=== PATIENT | male | born 1950 | race Caucasian/White ===

== ENCOUNTER 2017-11-21 15:10 | Emergency (ER) | payer OTHER, MEDICARE, SELFPAY ==
[2017-11-21] VITALS (21 sets, daily range): BP systolic 129–153; BP diastolic 73–78; PULSE 60–75; RESP 12–35; TEMP 36.8–37; O2SAT 93–98
--- NOTE | 2017-11-21 15:49 | ED.GENADUL ---
Disposition Clinical Impression: TIA (transient ischemic attack) Disposition: HOME Instructions: Transient Ischemic Attack (ED) Additional Instructions: Please follow-up with your primary care physician and neurology. Please take your medications as prescribed. Return to the emergency department immediately for any worsening or new concerning symptoms. Prescriptions: Magnesium Oxide [Mag-Ox 400] 400 mg PO BID #20 tab Referrals: Alejandra Rodriguez MD, [place] [Primary Care Provider] - Medical Decision Making - Medical Decision Making 15:45 -- Patient seen immediately on arrival. Medical screening exam performed. 67-year-old male with history of SVT, here after recent discharge from [facility] where he was being treated for TIA, with right-sided paresthesia and weakness involving his face and arm that occurred twice today just prior to arrival. 15:55 -- I spoke with Dr. Mcdonald, who knows the patient well, having just discharged him. I discussed the patient's presentation including history and exam. She recommends no additional testing at this time and requests that he be discharged with outpatient followup. I did ask Dr. Mcdonald to speak with the patient and his to discuss outpatient follow-up. 16:30 -- I spoke with Dr. Mcdonald again regarding a low magnesium that was not corrected at [facility] [place]. Apparently magnesium level was 0.9. Plan to recheck here and correct as needed. 17:24 -- Labs reviewed and magnesium WNL. Will prescribe short course of mag ox. History of Present Illness - General Chief complaint: CVA/TIA Stated complaint: STROKE? Time Seen by Provider: 11/21/17 15:17 Source: patient, family (), RN notes reviewed Mode of arrival: ambulatory Limitations: no limitations - History of Present Illness Initial comments: 67yo m hypothyroidism, SVT, presents with chief complaint of right sided weakness and numbness. Symptoms started just prior to arrival. He had a brief episode at 220 and then another episode at 250. The episode at 250 lasted for minutes. Symptoms were severe. He specifically notes that he had numbness and facial droop on the right side of his face as well as numbness and weakness in his right arm. Of note, patient had similar symptoms 2 days ago and was admitted to neurology service at [facility]. He had a recurrent episode yesterday around noon and then did not have any episodes last night or this morning. He was discharged from [facility] today. He did have CT imaging and CTA that revealed narrowing of the blood vessel. He cannot have MRI as he has metallic foreign body in his eye. Patient notes that symptoms today were worse than prior. No associated chest pain or dizziness. - Related Data Famotidine/Ca Carb/Mag Hydrox [Pepcid Complete Tablet Chew] 1 each PO BID PRN #180 tab.chew 10/05/13 Naproxen Sodium [Aleve] 220 mg PO DAILY PRN 11/13/16 Metoprolol [Lopressor] 25 mg PO PRN #10 tab 01/10/17 Aspirin 1 tab PO DAILY 11/21/17 Atorvastatin [Lipitor] 20 mg PO HS 11/21/17 Clopidogrel [Plavix] 75 mg PO DAILY 11/21/17 Levothyroxine Sodium 100 mcg PO DAILY 11/21/17 Magnesium Oxide [Mag-Ox 400] 400 mg PO BID #20 tab 11/21/17 Allergies Allergy/AdvReac Type Severity Reaction Status Date / Time codeine AdvReac Unverified 11/18/17 10:23 MRI AdvReac Severe Uncoded 11/21/17 16:14 Review of Systems Constitutional: denies: chills, fever Eyes: denies: vision change Respiratory: denies: cough, shortness of breath Neurological: weakness, numbness. denies: headache, confusion Comment: All other systems reviewed and negative Past Medical History - Past Medical History Medical history: GERD, SVT hypothyroidism - Social History Alcohol use: none Drug use: none General Exam - General Limitations: no limitations General appearance: alert, in no apparent distress - Head Head exam: Present: atraumatic, normocephalic - Eye Eye exam: Present: PERRL, EOMI. Absent: scleral icterus, conjunctival injection - ENT ENT exam: Present: mucous membranes moist - Respiratory Respiratory exam: Present: normal lung sounds bilaterally - Cardiovascular Cardiovascular Exam: Present: regular rate, normal rhythm, normal heart sounds - GI/Abdominal GI/Abdominal exam: Present: soft. Absent: distended, tenderness - Extremities Exam Extremities exam: Absent: pedal edema - Neurological Exam Neurological exam: Present: alert, oriented X3, CN II-XII intact. Absent: altered, motor sensory deficit - Psychiatric Psychiatric exam: Present: anxious - Skin Skin exam: Present: warm, dry, intact Course Vital Signs - 24 hr 11/21/17 11/21/17 15:20 15:24 Temperature 37.0 C Pulse 75 Respiratory 21 17 Rate Blood Pressure 153/74 Pulse Oximetry 98
--- NOTE | 2017-11-21 15:52 | ED.GENADUL_ITS ---
Disposition Clinical Impression: TIA (transient ischemic attack) Disposition: HOME Instructions: Transient Ischemic Attack (ED) Additional Instructions: Please follow-up with your primary care physician and neurology. Please take your medications as prescribed. Return to the emergency department immediately for any worsening or new concerning symptoms. Prescriptions: Magnesium Oxide [Mag-Ox 400] 400 mg PO BID #20 tab Referrals: Alejandra Rodriguez MD, [place] [Primary Care Provider] - Medical Decision Making - Medical Decision Making 15:45 -- Patient seen immediately on arrival. Medical screening exam performed. 67-year-old male with history of SVT, here after recent discharge from [facility] [place] where he was being treated for TIA, with right-sided paresthesia and weakness involving his face and arm that occurred twice today just prior to arrival. 15:55 -- I spoke with Dr. Mcdonald, who knows the patient well, having just discharged him. I discussed the patient's presentation including history and exam. She recommends no additional testing at this time and requests that he be discharged with outpatient followup. I did ask Dr. Mcdonald to speak with the patient and his to discuss outpatient follow-up. 16:30 -- I spoke with Dr. Mcdonald again regarding a low magnesium that was not corrected at [facility] [place]. Apparently magnesium level was 0.9. Plan to recheck here and correct as needed. 17:24 -- Labs reviewed and magnesium WNL. Will prescribe short course of mag ox. History of Present Illness - General Chief complaint: CVA/TIA Stated complaint: STROKE? Time Seen by Provider: 11/21/17 15:17 Source: patient, family (), RN notes reviewed Mode of arrival: ambulatory Limitations: no limitations - History of Present Illness Initial comments: 67yo m hypothyroidism, SVT, presents with chief complaint of right sided weakness and numbness. Symptoms started just prior to arrival. He had a brief episode at 220 and then another episode at 250. The episode at 250 lasted for minutes. Symptoms were severe. He specifically notes that he had numbness and facial droop on the right side of his face as well as numbness and weakness in his right arm. Of note, patient had similar symptoms 2 days ago and was admitted to neurology service at [facility] [place]. He had a recurrent episode yesterday around noon and then did not have any episodes last night or this morning. He was discharged from [facility] today. He did have CT imaging and CTA that revealed narrowing of the blood vessel. He cannot have MRI as he has metallic foreign body in his eye. Patient notes that symptoms today were worse than prior. No associated chest pain or dizziness. - Related Data Famotidine/Ca Carb/Mag Hydrox [Pepcid Complete Tablet Chew] 1 each PO BID PRN # 180 tab.chew 10/05/13 Naproxen Sodium [Aleve] 220 mg PO DAILY PRN 11/13/16 Metoprolol [Lopressor] 25 mg PO PRN #10 tab 01/10/17 Aspirin 1 tab PO DAILY 11/21/17 Atorvastatin [Lipitor] 20 mg PO HS 11/21/17 Clopidogrel [Plavix] 75 mg PO DAILY 11/21/17 Levothyroxine Sodium 100 mcg PO DAILY 11/21/17 Magnesium Oxide [Mag-Ox 400] 400 mg PO BID #20 tab 11/21/17 Allergies Allergy/AdvReac Type Severity Reaction Status Date / Time codeine AdvReac Unverified 11/18/17 10:23 MRI AdvReac Severe Uncoded 11/21/17 16:14 Review of Systems Constitutional: denies: chills, fever Eyes: denies: vision change Respiratory: denies: cough, shortness of breath Neurological: weakness, numbness. denies: headache, confusion Comment: All other systems reviewed and negative Past Medical History - Past Medical History Medical history: GERD, SVT hypothyroidism - Social History Alcohol use: none Drug use: none General Exam - General Limitations: no limitations General appearance: alert, in no apparent distress - Head Head exam: Present: atraumatic, normocephalic - Eye Eye exam: Present: PERRL, EOMI. Absent: scleral icterus, conjunctival injection - ENT ENT exam: Present: mucous membranes moist - Respiratory Respiratory exam: Present: normal lung sounds bilaterally - Cardiovascular Cardiovascular Exam: Present: regular rate, normal rhythm, normal heart sounds - GI/Abdominal GI/Abdominal exam: Present: soft. Absent: distended, tenderness - Extremities Exam Extremities exam: Absent: pedal edema - Neurological Exam Neurological exam: Present: alert, oriented X3, CN II-XII intact. Absent: altered, motor sensory deficit - Psychiatric Psychiatric exam: Present: anxious - Skin Skin exam: Present: warm, dry, intact Course Vital Signs - 24 hr 11/21/17 11/21/17 15:20 15:24 Temperature 37.0 C Pulse 75 Respiratory 21 17 Rate Blood Pressure 153/74 Pulse Oximetry 98
[2017-11-21 16:39] LABS: Abs Immature Grans 0.03 k/cumm (0.0-0.09); Absolute Basophil Count 0.05 k/cumm (0.0-0.2); Absolute Eosinophil Count 0.17 k/cumm (0.0-0.7); Absolute Lymphocyte Count 2.28 k/cumm (1.2-3.4); Absolute Monocyte Count 0.77 k/cumm (0.11-0.7); Absolute Neutrophil Count 5.51 k/cumm (1.2-6.7); Basophils % 0.6; Eosinophils % 1.9; HCT 41.9 % (40.0-50.0); HGB 13.9 g/dL (13.5-17.5); Immature Grans % 0.3; Lymphocytes % 25.9; Mean Corp. HGB Concentration 33.2 g/dL (32.0-36.0); Mean Corpuscular Hemoglobin 30.8 pg (27.0-33.0); Mean Corpuscular Volume 92.9 fL (80-95); Mean Platelet Volume 11.5 fL (8.0-11.0); Monocytes % 8.7; Neutrophils % 62.6; Platelet Count 214 x1000/uL (130-400); RBC 4.51 m/cumm (4.50-6.00); RBC Distribution Width 14.2 % (11.8-14.1); White Blood Cell Count 8.81 k/cumm (4.4-10.8)
[2017-11-21 16:54] LABS: ALT 35 U/L (12-78); AST 19 U/L (15-37); Albumin 3.8 g/dL (3.4-5.0); Alkaline Phosphatase 70 U/L (46-116); Anion Gap 13.1 mmol/L (3-11); BUN 22 mg/dL (7-18); Bilirubin, Total 0.4 mg/dL (0.2-1.0); CO2 23.9 mmol/L (21.0-32.0); Calcium 9.2 mg/dL (8.5-10.1); Chloride 102 mmol/L (98-107); Glucose 124 mg/dL (70-100); Magnesium 1.9 mg/dL (1.8-2.4); Potassium 3.8 mmol/L (3.5-5.1); Sodium 139 mmol/L (136-145); Troponin I < 0.02 ng/mL (0.00-0.06)
[2017-11-21] MEDS: Magnesium Oxide 400 MG TAB PO (17:45)
[2017-11-21] MEDS: Normal Saline Flush 10 ML SYR IVP (17:45)
[2017-11-21 21:43] LABS: Ionized Calcium 1.16 mmol/L (1.12-1.32)
--- NOTE | 2017-11-25 02:09 | ED.FU.B_ITS ---
- Follow Up Follow Up Plan: Mrs. Palm called on behalf of her later in the evening after discharge noting continued and more frequent intermittent symptoms. I advised that they return to the ER or seek care at [facility], if they would prefer, given recent neuro admission.
== END 2017-11-21 17:52 | disposition home or self-care (01) ==
PROVIDERS: Emergency Provider Student in an Organized Health Care Education/Training Program; PCP Family Medicine
DX: G45.9 Transient cerebral ischemic attack, unspecified (principal); R20.2 Paresthesia of skin; R29.810 Facial weakness
CPT/HCPCS: 36415; 80053; 99284; 82330; 83735; 84484; 85025

== ENCOUNTER 2017-12-24 10:36 | Outpatient (CLI) | payer OTHER, MEDICARE, SELFPAY ==
[2017-12-24 12:04] LABS: TSH (W/Ref FT4) 7.54 uIU/mL (0.358-3.74)
[2017-12-24 12:21] LABS: FREE T4 0.99 ng/dL (0.76-1.46)
== END 2017-12-24 10:56 ==
PROVIDERS: PCP Family Medicine; Visit Provider Family Medicine
DX: E03.9 Hypothyroidism, unspecified (principal)
CPT/HCPCS: 36415; 84439; 84443

== ENCOUNTER 2018-03-12 09:35 | Outpatient (CLI) | payer OTHER, MEDICARE, SELFPAY ==
[2018-03-12 11:29] LABS: ALT 35 U/L (12-78); AST 18 U/L (15-37); Albumin 3.7 g/dL (3.4-5.0); Alkaline Phosphatase 83 U/L (46-116); Anion Gap 8.3 mmol/L (3-11); BUN 18 mg/dL (7-18); Bilirubin, Total 0.4 mg/dL (0.2-1.0); CO2 27.7 mmol/L (21.0-32.0); CREATININE 1.21 mg/dL (0.70-1.30); Calcium 9.3 mg/dL (8.5-10.1); Chloride 105 mmol/L (98-107); Estimated GFR 59.64 (mL/min/1.73m2); Glucose 90 mg/dL (70-100); Potassium 4.7 mmol/L (3.5-5.1); Sodium 141 mmol/L (136-145); TSH (W/Ref FT4) 1.01 uIU/mL (0.358-3.74); Total Protein 7.3 g/dL (6.4-8.2); Vitamin B12 344 pg/mL (193-986)
[2018-03-15 15:23] LABS: Riboflavin (Vitamin B2), P 18 mcg/L (1-19)
== END 2018-03-12 09:55 ==
PROVIDERS: PCP Family Medicine; Visit Provider Family Medicine
DX: E03.9 Hypothyroidism, unspecified (principal); R97.20 Elevated prostate specific antigen [PSA]; E55.9 Vitamin D deficiency, unspecified; R21 Rash and other nonspecific skin eruption
CPT/HCPCS: 36415; 80053; 84252; 82607; 83735; 84154; 84443

== ENCOUNTER 2018-05-15 13:08 | Outpatient (CLI) | payer OTHER, MEDICARE, SELFPAY ==
--- NOTE | 2018-05-15 09:30 | DI.RAD_ITS ---
SYMPTOMS/DIAGNOSIS: ELBOW PAIN, M25.529 LEFT ELBOW: Three views were obtained. There is no evidence of an elbow joint effusion or hemarthrosis. There is a small osteophyte of the medial epicondyle of the humerus and a tiny osteophyte of the olecranon. No other bony abnormality seen.
== END 2018-05-15 13:28 ==
PROVIDERS: PCP Family Medicine; Visit Provider Family Medicine
DX: M25.522 Pain in left elbow (principal)
CPT/HCPCS: 73080

== ENCOUNTER 2018-10-31 10:25 | Outpatient (CLI) | payer OTHER, MEDICARE, SELFPAY ==
[2018-10-31 12:12] LABS: TSH (W/Ref FT4) 1.42 uIU/mL (0.36-3.74)
== END 2018-10-31 10:45 ==
PROVIDERS: PCP Family Medicine; Visit Provider Family Medicine
DX: E03.9 Hypothyroidism, unspecified (principal)
CPT/HCPCS: 36415; 84443

== ENCOUNTER 2019-05-07 01:02 | Outpatient (CLI) | payer OTHER, MEDICARE, SELFPAY ==
[2019-05-07 11:35] LABS: TSH (W/Ref FT4) 2.17 uIU/mL (0.36-3.74)
== END 2019-05-07 01:22 ==
PROVIDERS: PCP Family Medicine; Visit Provider Family Medicine
DX: E78.1 Pure hyperglyceridemia (principal)
CPT/HCPCS: 36415; 84443

== ENCOUNTER 2020-07-04 04:24 | Outpatient (CLI) | payer OTHER, MEDICARE, SELFPAY ==
[2020-07-04 10:11] LABS: TSH (W/Ref FT4) 1.23 uIU/mL (0.36-3.74)
== END 2020-07-04 04:25 | disposition home or self-care (01) ==
LOC: LBO 04:24
PROVIDERS: PCP Family Medicine; Visit Provider Family Medicine
DX: E03.9 Hypothyroidism, unspecified (principal)
CPT/HCPCS: 36415; 84443

== ENCOUNTER 2021-05-24 02:26 | Outpatient (CLI) | payer OTHER, MEDICARE, SELFPAY ==
[2021-05-24 12:48] LABS: TSH (W/Ref FT4) 1.87 uIU/mL (0.36-3.74)
== END 2021-05-24 02:27 | disposition home or self-care (01) ==
LOC: LBO 02:27
PROVIDERS: PCP Family Medicine; Visit Provider Family Medicine
DX: E03.9 Hypothyroidism, unspecified (principal)
CPT/HCPCS: 36415; 84443

== ENCOUNTER 2021-06-27 14:12 | Outpatient (CLI) | payer OTHER, MEDICARE, SELFPAY ==
[2021-06-27 15:29] LABS: Anion Gap 5.4 mmol/L (3-11); BUN 21 mg/dL (7-18); CO2 28.6 mmol/L (21.0-32.0); CREATININE 1.1 mg/dL (0.70-1.30); Calcium 8.7 mg/dL (8.5-10.1); Chloride 107 mmol/L (98-107); Glucose 116 mg/dL (74-106); Potassium 4.8 mmol/L (3.5-5.1); Sodium 141 mmol/L (136-145)
== END 2021-06-27 14:13 | disposition home or self-care (01) ==
LOC: LBO 14:15
PROVIDERS: PCP Family Medicine; Visit Provider Family Medicine
DX: R79.89 Other specified abnormal findings of blood chemistry (principal)
CPT/HCPCS: 36415; 80048

== ENCOUNTER → 2021-11-16 12:37 | Outpatient (CLI) | payer OTHER, MEDICARE, SELFPAY ==
--- NOTE | 2021-11-16 10:15 | DI.RAD_ITS ---
Exam(s) XR KNEE RT 3V AP,LAT,FELICIA EXAM: XR KNEE RT 3V AP,LAT,FELICIA CLINICAL HISTORY: Right Knee Pain--M25.561. TECHNIQUE: 2D digital imaging was performed. COMPARISON: CR LEFT KNEE 3 VIEW COMPLETE from 01/06/2011 FINDINGS: 3 views No evidence of fracture although there does appear to be a small joint effusion which may signify an internal derangement. There is no joint space narrowing and no osteophytes. Bone density is normal. No osseous lesions. IMPRESSION: No significant osseous findings but there is a small joint effusion. If clinically indicated follow- up MRI can be performed for added sensitivity and specificity. DATA REPOSITORY: RADIATION DOSE DELIVERED:
== END ==
PROVIDERS: PCP Family Medicine; Visit Provider Nurse Practitioner Family
DX: M25.561 Pain in right knee (principal); M25.461 Effusion, right knee
CPT/HCPCS: 73562

== ENCOUNTER 2022-06-12 03:25 | Outpatient (CLI) | payer OTHER, MEDICARE, SELFPAY ==
[2022-06-12 11:32] LABS: TSH (W/Ref FT4) 2.73 uIU/mL (0.36-3.74)
[2022-06-12 18:37] LABS: PSA, Diagnostic 25.1 ng/mL (<=6.5)
== END 2022-06-12 03:26 | disposition home or self-care (01) ==
PROVIDERS: PCP Family Medicine; Visit Provider Family Medicine
DX: E03.9 Hypothyroidism, unspecified (principal); N40.0 Benign prostatic hyperplasia without lower urinary tract symptoms
CPT/HCPCS: 36415; 84153; 84443

== ENCOUNTER 2022-07-09 03:31 | Outpatient (CLI) | payer OTHER, MEDICARE, SELFPAY ==
[2022-07-09 14:07] LABS: CREATININE 1.3 mg/dL (0.70-1.30); Estimated GFR 58.37 (mL/min/1.73m2)
[2022-07-09 23:43] LABS: PSA, Diagnostic 25.6 ng/mL (<=6.5)
== END 2022-07-09 03:32 | disposition home or self-care (01) ==
LOC: LBO 03:31
PROVIDERS: PCP Family Medicine; Visit Provider Nurse Practitioner Gerontology
DX: R97.20 Elevated prostate specific antigen [PSA] (principal); Z01.812 Encounter for preprocedural laboratory examination
CPT/HCPCS: 36415; 82565; 84153

== ENCOUNTER 2023-02-04 03:22 | Outpatient (CLI) | payer OTHER, MEDICARE, SELFPAY | END 2023-02-04 03:23 | disposition home or self-care (01) | PROVIDERS: PCP Family Medicine; Visit Provider Nurse Practitioner Gerontology | DX: R97.20 Elevated prostate specific antigen [PSA] (principal) | CPT/HCPCS: 36415; 84153 ==

== ENCOUNTER 2023-08-05 05:39 | Outpatient (CLI) | payer OTHER, MEDICARE, SELFPAY ==
[2023-08-05 12:37] LABS: TSH (W/Ref FT4) 2.58 uIU/mL (0.36-3.74)
[2023-08-05 17:18] LABS: PSA, Diagnostic 32.7 ng/mL (<=6.5)
== END 2023-08-05 05:40 | disposition home or self-care (01) ==
LOC: LBO 05:39
PROVIDERS: Nurse Practitioner Gerontology; PCP Family Medicine; Visit Provider Family Medicine
DX: E03.9 Hypothyroidism, unspecified (principal); R97.20 Elevated prostate specific antigen [PSA]
CPT/HCPCS: 84153; 84443

== ENCOUNTER 2023-11-27 02:24 | Outpatient (CLI) | payer OTHER, MEDICARE, SELFPAY ==
[2023-11-27 19:02] LABS: PSA, Diagnostic 34.4 ng/mL (<=6.5)
== END 2023-11-27 02:25 | disposition home or self-care (01) ==
LOC: LBO 02:25
PROVIDERS: PCP Family Medicine; Visit Provider Nurse Practitioner Gerontology
DX: R97.20 Elevated prostate specific antigen [PSA] (principal)
CPT/HCPCS: 36415; 84153

== ENCOUNTER 2024-06-03 03:21 | Outpatient (CLI) | payer OTHER, MEDICARE, SELFPAY ==
[2024-06-03 19:59] LABS: PSA, Diagnostic 32.9 ng/mL (<=6.5)
== END 2024-06-03 03:22 | disposition home or self-care (01) ==
PROVIDERS: PCP Family Medicine; Visit Provider Nurse Practitioner Gerontology
DX: R97.20 Elevated prostate specific antigen [PSA] (principal)
CPT/HCPCS: 36415; 84153

== ENCOUNTER 2024-08-13 11:27 | Outpatient (CLI) | payer OTHER, MEDICARE, SELFPAY ==
[2024-08-13 09:55] LABS: ALT 30 U/L (16-63); AST 13 U/L (15-37); Albumin 3.7 g/dL (3.4-5.0); Alkaline Phosphatase 72 U/L (46-116); Anion Gap 10.7 mmol/L (3-11); BUN 23 mg/dL (7-18); Bilirubin, Total 0.4 mg/dL (0.2-1.0); CO2 27.3 mmol/L (21.0-32.0); Calcium 8.7 mg/dL (8.5-10.1); Chloride 103 mmol/L (98-107); Estimated GFR 78.49 (mL/min/1.73m2); Glucose 101 mg/dL (74-106); Potassium 4.1 mmol/L (3.5-5.1); Sodium 141 mmol/L (136-145); TSH (W/Ref FT4) 3.95 uIU/mL (0.36-3.74); Total Protein 7.7 g/dL (6.4-8.2)
[2024-08-13 10:17] LABS: FREE T4 1.03 ng/dL (0.76-1.46)
[2024-08-13 19:24] LABS: Hepatitis C Ab w Rflx HCV PCR Negative (Negative)
== END 2024-08-13 11:28 | disposition home or self-care (01) ==
LOC: LBO 11:27
PROVIDERS: PCP Family Medicine; Visit Provider Family Medicine
DX: I10 Essential (primary) hypertension (principal); Z11.59 Encounter for screening for other viral diseases; E03.9 Hypothyroidism, unspecified
CPT/HCPCS: 36415; 80053; 86803; 84439; 84443

== ENCOUNTER 2024-12-02 02:19 | Outpatient (CLI) | payer OTHER, MEDICARE, SELFPAY ==
[2024-12-02 18:33] LABS: PSA, Diagnostic 35.6 ng/mL (<=6.5)
== END 2024-12-02 02:20 | disposition home or self-care (01) ==
LOC: LBO 02:19
PROVIDERS: PCP Family Medicine; Visit Provider Nurse Practitioner Gerontology
DX: R97.20 Elevated prostate specific antigen [PSA] (principal)
CPT/HCPCS: 36415; 84153